=== PATIENT | female | born 1970 | race Caucasian/White ===

== ENCOUNTER → 2017-12-03 | Outpatient (CLI) | payer BC ==
[2017-12-03 14:36] LABS: HEMATOCRIT 47.8 % (37.0-47.0); HEMOGLOBIN 16.1 g/dL (12.5-16.0); MEAN PLATELET VOLUME 11.5 fl (7.4-10.4); RED BLOOD COUNT 5.46 M/mm3 (4.10-5.30); RED CELL DISTRIBUTION WIDTH 12.9 % (11.5-14.5); WHITE BLOOD COUNT 8.4 K/mm3 (4.8-10.8)
[2017-12-03 21:23] LABS: BUN/CREATININE RATIO 22.6 (6.0-26.0); CALCIUM 10.5 mg/dL (8.4-10.2); POTASSIUM 4.5 mmol/L (3.6-5.0)
[2017-12-03 21:24] LABS: ALBUMIN 4.1 g/dL (3.5-5.0); TOTAL PROTEIN 7.6 g/dL (6.3-8.2)
[2017-12-03 21:25] LABS: TOTAL BILIRUBIN 0.4 mg/dL (0.2-1.3)
== END ==
LOC: LAB 13:53
PROVIDERS: Family Medicine
DX: E66.01 Morbid (severe) obesity due to excess calories (principal); R53.83 Other fatigue